=== PATIENT | female | born 1970 | race Hispanic/Latino ===

== ENCOUNTER 2018-01-20 11:50 | Emergency (ER) | payer BC, OTHER ==
[2018-01-20] MEDS ORDERED: Ibuprofen 800 MG TAB ONE (13:37)
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
== END 2018-01-20 13:44 | disposition home or self-care (01) ==
LOC: ERS 11:50
DX: M54.2 Cervicalgia (principal); E11.9 Type 2 diabetes mellitus without complications; E78.00 Pure hypercholesterolemia, unspecified; Z79.899 Other long term (current) drug therapy; Z79.84 Long term (current) use of oral hypoglycemic drugs; V43.52XA Car driver injured in collision with other type car in traffic accident, initial encounter
CPT/HCPCS: 72125